=== PATIENT | female | born 1975 | race Caucasian/White ===

== ENCOUNTER 2017-08-01 20:47 | Emergency (ER) | payer SELFPAY ==
[~2017-08-01] VITALS: Ht 165.1 cm; Wt 69.0 kg
[2017-08-01] MEDS ORDERED: IBUPROFEN 600MG TABLET PO ONE (21:30)
[2017-08-01] MEDS ORDERED: LIDOCAINE HCL 1% 20ML VIAL (Pyxis) INJ MC ONE (21:30)
[2017-08-01] MEDS ORDERED: BACITRACIN ZINC OINT UDPKT TOP ONE (21:30)
[2017-08-01] MEDS ORDERED: TETANUS, DIPHTHERIA, PERTUSSIS VAC/PF 0.5ML (>7YR OLD) IM ONE (21:30)
[2017-08-01] MEDS ORDERED: HYDROCODONE/ACETAMINOPHEN 5/325MG TABLET PO ONE (22:30)
[2017-08-01 23:12] VITALS: BP 129/86
== END 2017-08-01 23:12 | disposition home or self-care (01) ==
LOC: ER 20:47
DX: S61.213A Laceration without foreign body of left middle finger without damage to nail, initial encounter (principal); S61.215A Laceration without foreign body of left ring finger without damage to nail, initial encounter; W25.XXXA Contact with sharp glass, initial encounter; Y93.89 Activity, other specified; Y92.89 Other specified places as the place of occurrence of the external cause; Y99.8 Other external cause status
CPT/HCPCS: 12002; 90471; 90715; 99283; J3490; X7700; Z7610

== ENCOUNTER 2017-08-03 11:02 | Emergency (ER) | payer MEDICAID ==
[~2017-08-03] VITALS: Ht 165.1 cm; Wt 70.0 kg
[2017-08-03 13:30] VITALS: BP 136/62
[2017-08-03] MEDS ORDERED: KETOROLAC 15MG/ML VIAL IV ONE (15:15)
[2017-08-03] MEDS ORDERED: SODIUM CHLORIDE 0.9% 500 ML IV ONE (15:15)
== END 2017-08-03 15:21 | disposition left against medical advice (07) ==
LOC: ER 11:02
DX: N39.0 Urinary tract infection, site not specified (principal); E86.0 Dehydration
CPT/HCPCS: 81025; 99285; J7040; Z7610

== ENCOUNTER 2017-11-14 14:09 | Emergency (ER) | payer SELFPAY ==
[~2017-11-14] VITALS: Ht 165.1 cm; Wt 73.0 kg
[2017-11-14 14:23] VITALS: BP 114/77
== END 2017-11-14 18:57 | disposition left against medical advice (07) ==
LOC: ER 14:46
DX: J11.1 Influenza due to unidentified influenza virus with other respiratory manifestations (principal); Z53.21 Procedure and treatment not carried out due to patient leaving prior to being seen by health care provider

== ENCOUNTER 2018-07-20 10:47 | Emergency (ER) | payer SELFPAY ==
[~2018-07-20] VITALS: Ht 162.6 cm; Wt 71.0 kg
[2018-07-20] MEDS ORDERED: ONDANSETRON HCL 4MG/2ML INJ IV STA (11:21)
[2018-07-20] MEDS ORDERED: KETOROLAC 30MG/ML VIAL IV STA (11:21)
[2018-07-20] MEDS ORDERED: FAMOTIDINE 20MG/2ML VIAL IV STA (11:21)
[2018-07-20 12:25] LABS: BASOPHILS % 0.3 % (0.0-2.0); EOSINOPHILS % 0.4 % (0.0-5.0); HEMATOCRIT. 41.3 % (36.0-48.0); HEMOGLOBIN. 14.2 g/dL (12.0-16.0); LYMPHOCYTES % 11.1 % (20.0-50.0); MEAN CORPUSCULAR VOLUME 87.4 fL (81.0-99.0); MEAN PLATELET VOLUME 8.9 fl (7.4-10.4); MONOCYTES % 4.9 % (2.0-8.0); NEUTROPHILS % 83.3 % (40.0-76.0); PLATELET 284 x1000/uL (130-400); RED BLOOD CELL COUNT 4.73 mill/uL (4.2-5.4); RED CELL DISTRIBUTION WIDTH 13.2 % (11.6-14.6)
[2018-07-20 12:26] LABS: CHLORIDE 99 mEq/L (98-107)
[2018-07-20 12:28] LABS: HCG SCREEN NEGATIVE
[2018-07-20 13:38] VITALS: BP 110/54
== END 2018-07-20 14:19 | disposition home or self-care (01) ==
LOC: ER 13:56
DX: R10.13 Epigastric pain (principal); K76.0 Fatty (change of) liver, not elsewhere classified; Z98.51 Tubal ligation status
CPT/HCPCS: 36415; 76705; 80053; 81025; 83690; 84703; 85025; 93005; 96374; 96375; 99285; J1885; J2405; J3490

== ENCOUNTER 2020-05-11 07:37 | Emergency (ER) | payer SELFPAY ==
[~2020-05-11] VITALS: Ht 165.1 cm; Wt 75.0 kg
[2020-05-11 07:50] VITALS: BP 124/50
[2020-05-11] MEDS ORDERED: KETOROLAC 60MG/2ML VIAL IM ONE (09:00)
== END 2020-05-11 10:16 | disposition home or self-care (01) ==
LOC: ER 07:37
DX: N64.4 Mastodynia (principal); N60.02 Solitary cyst of left breast; Z98.51 Tubal ligation status
CPT/HCPCS: 76642; 81025; 96372; 99284; J1885

== ENCOUNTER 2023-11-20 11:12 | Emergency (ER) | payer MEDICAID ==
[~2023-11-20] VITALS: Ht 162.6 cm; Wt 75.0 kg
[2023-11-20 11:16] VITALS: O2SAT 98
[2023-11-20] MEDS ORDERED: ACET-2708 MT (13:59)
[2023-11-20] MEDS ORDERED: IBUP-1523 MT (13:59)
[2023-11-20] MEDS ORDERED: P50 MT (13:59)
[2023-11-20 15:36] VITALS: BP 145/95; PULSE 85; RESP 16; TEMP 98
== END 2023-11-20 16:14 | disposition home or self-care (01) ==
LOC: ER 12:04
DX: M25.552 Pain in left hip (principal); M25.551 Pain in right hip; M19.90 Unspecified osteoarthritis, unspecified site; Z98.890 Other specified postprocedural states
CPT/HCPCS: 73522; 99283

== ENCOUNTER 2024-07-23 02:10 | Day surgery (SDC) | payer SELFPAY ==
[~2024-07-23] VITALS: Ht 152.4 cm; Wt 76.5 kg
[~2024-07-23 02:10] MED LIST: ACET-2708 MT; IBUP-1523 MT; P50 MT
[2024-07-23 02:17] VITALS: O2SAT 98
[2024-07-23 02:55] LABS: BASOPHILS % 0.3 % (0.0-2.0); CHLORIDE 105 mEq/L (98-107); EOSINOPHILS % 0.1 % (0.0-5.0); HEMATOCRIT. 38.8 % (36.0-48.0); LYMPHOCYTES % 9.6 % (20.0-50.0); MEAN CORPUSCULAR HEMOGLOBIN 29.9 pg (28.0-32.0); MEAN CORPUSCULAR HGB CONC 33.6 g/dL (31.0-37.0); MEAN PLATELET VOLUME 8.9 fl (7.4-10.4); MONOCYTES % 3.3 % (2.0-8.0); NEUTROPHILS % 86.7 % (40.0-76.0); PLATELET 332 x1000/uL (130-400); POTASSIUM 3.4 mEq/L (3.5-5.1); RED BLOOD CELL COUNT 4.36 mill/uL (4.2-5.4); RED CELL DISTRIBUTION WIDTH 12.8 % (11.6-14.6); SODIUM 138 mEq/L (136-145); WHITE BLOOD COUNT 16.8 x1000/uL (4.5-11.0)
[2024-07-23 02:56] LABS: CALCIUM 9.3 mg/dL (8.7-10.4); CARBON DIOXIDE 21 mEq/L (21-32)
[2024-07-23 03:01] LABS: CREATININE 0.7 mg/dL (0.6-1.0); GLUCOSE 139 mg/dL (70-105); HCG SCREEN NEGATIVE; UREA NITROGEN BLOOD 15 mg/dL (9-23)
[2024-07-23 03:03] LABS: ALANINE AMINOTRANSFERASE 31 IU/L (10-49); ALBUMIN 4.6 g/dL (3.2-4.8); ASPARTATE AMINOTRANSFERASE 22 IU/L (<34); BILIRUBIN DIRECT 0.1 mg/dL (<=3.0); BILIRUBIN TOTAL 0.6 mg/dL (0.1-1.0); PROTEIN TOTAL 7.3 g/dL (6.0-8.3)
[2024-07-23 03:37] LABS: CLARITY URINE CLEAR (CLEAR); COLOR URINE YELLOW (YELLOW); GLUCOSE URINE NEGATIVE (NEGATIVE); KETONES URINE 3+ (NEGATIVE); LEUKOCYTE ESTERASE URINE TRACE (NEGATIVE); NITRITE URINE NEGATIVE (NEGATIVE); OCCULT BLOOD URINE NEGATIVE (NEGATIVE); PROTEIN URINE NEGATIVE (NEGATIVE); SPECIFIC GRAVITY URINE 1.027 (1.005-1.030)
[2024-07-23] MEDS: ACETAMINOPHEN 1000MG/100ML 100 ML IV NR ×2 (04:02→10:28)
[2024-07-23] MEDS: SODIUM CHLORIDE 0.9% 1,000 ML IV ONE ×2 (04:04→06:31)
[2024-07-23 04:20] LABS: WBC URINE 0-2 /hpf (0-2)
[2024-07-23 04:21] LABS: BACTERIA URINE 1+; RBC URINE NONE SEEN /hpf (0-2); SQUAMOUS EPITHELIAL CELL URINE FEW /lpf (RARE/1+)
[2024-07-23 06:08] LABS: LACTIC ACID 2.3 mmol/L (0.4-2.0)
[2024-07-23 06:19] VITALS: TEMP 36.50292; O2SAT 100
[2024-07-23] MEDS: ONDANSETRON HCL 4MG/2ML INJ IV NR (06:31)
[2024-07-23] MEDS: CEFTRIAXONE 1GM/50ML 50 ML IV NR (06:31)
[2024-07-23] MEDS: KETOROLAC 15MG/ML VIAL IV NR (06:32)
[2024-07-23] MEDS: IOHEXOL-300 100 ML BOTTLE ONE (07:05)
[2024-07-23] MEDS ORDERED: BUPIVACAINE HCL/PF 0.5% (5MG/ML) 10ML ONE (08:43)
[2024-07-23] MEDS ORDERED: SKIN ADHESIVE 0.7 GM EA TOP ONE (08:43)
[2024-07-23] MEDS ORDERED: ONDANSETRON HCL 4MG/2ML INJ ONE (08:52)
[2024-07-23] MEDS ORDERED: DEXAMETHASONE 4MG/ML 1ML VIAL ONE (08:52)
[2024-07-23] MEDS ORDERED: LIDOCAINE HCL 1% 10 MG/ML 10ML VIAL ONE (08:52)
[2024-07-23] MEDS ORDERED: MIDAZOLAM HCL 2 MG/2 ML VIAL ONE (08:53)
[2024-07-23] MEDS ORDERED: ROCURONIUM BROMIDE 10MG/ML VIAL 5ML IV ONE (08:53)
[2024-07-23] MEDS ORDERED: FENTANYL CITRATE/PF 50MCG/ML 2ML VIAL ONE (08:53)
[2024-07-23] MEDS ORDERED: PROPOFOL 200MG/20ML VIAL IV ONE (08:53)
[2024-07-23] MEDS ORDERED: SUGAMMADEX SODIUM 200MG/2ML VIAL IV ONE (08:57)
[2024-07-23] MEDS ORDERED: IPRATROPIUM/ALBUTEROL 0.5-3(2.5)MG/3ML NEB HHN PRN (09:45)
[2024-07-23] MEDS ORDERED: CLONIDINE 0.1MG TABLET PO PRN (09:45)
[2024-07-23] MEDS ORDERED: ONDANSETRON HCL 4MG/2ML INJ IV PRN ×2 (09:45→10:00)
[2024-07-23] MEDS ORDERED: GUAIFENESIN 200MG/10ML SUGAR FREE UDC PO PRN (09:45)
[2024-07-23] MEDS ORDERED: ACETAMINOPHEN 325MG TABLET PO PRN ×2 (09:45)
[2024-07-23] MEDS ORDERED: MAGNESIUM/ALUMINUM HYDROXIDE/SIMETHICONE 30ML UDC PO PRN (09:45)
[2024-07-23] MEDS ORDERED: DOCUSATE SODIUM 100MG CAPSULE PO PRN (09:45)
[2024-07-23] MEDS ORDERED: FENTANYL CITRATE/PF 50MCG/ML 2ML VIAL IV PRN (10:00)
[2024-07-23] MEDS: HYDROMORPHONE HCL/PF 1MG/ML INJ IV PRN (11:22)
[2024-07-23 11:34] VITALS: BP 144/90; PULSE 93; RESP 14
== END 2024-07-24 12:34 | disposition home or self-care (01) ==
LOC: ER 02:23 → EDBEDREQ 05:51 → ER 09:40 → OR 07-24 10:02
PROVIDERS: ATTEND Surgery
DX: K35.80 Unspecified acute appendicitis (principal); Z79.52 Long term (current) use of systemic steroids; Z79.899 Other long term (current) drug therapy; Z98.890 Other specified postprocedural states; Z97.5 Presence of (intrauterine) contraceptive device
CPT/HCPCS: 44970; 74177; 87426; 80076; 80048; 81003; 84703; 83605; 85025; 87040; 87086; 36415; 88304; 99285; 87077; J3010; Q9967; J3490 ×3; J0696; J1100; J1885; J2250; J2405; J2704; J1170; J7030; J0131